=== PATIENT | male | born 2000 | race Hispanic/Latino ===

== ENCOUNTER 2020-07-17 01:12 | Emergency (ER) | payer SELFPAY ==
[~2020-07-17] VITALS: Ht 182.9 cm; Wt 129.3 kg
--- OUTSIDE RECORDS SUMMARY | 2020-07-17 01:50 | XMS REPORT | Continuity of Care Document ---
Author Author [facility] t Organization [facility] Address [address] [place] [address] Phone Unavailable Care Team Providers Care Manager Professional Development Name Role Phone Asked, Pcp No PCP Unavailable Pcp, Does Not Have A Patient Attphys +[id number]- [id number] Problems Condition Name Condition Details Condition Category Status Onset Date Resolution Date Last Treatment Date Treating Clinician Comments Source Status post arthroscopic surgery of right knee Status post arthroscopic surgery of right knee Disease Active 2017-10-27 00:00:00 Matteo Rollins Rupture of anterior cruciate ligament of right knee Ru pture of anterior cruciate ligament of right knee Disease Active 2017-06-28 00:00:00 Matteo Rollins Complex tear of lateral meniscus of right knee as curr ent injury Complex tear of lateral meniscus of right knee as current injury Disease Active 2017-06-28 00:00:[address] Effusion of right knee Effusion of right knee Disease Active 2017-06-28 00:00:[address] Knee stiffness Knee stiffness Disease Active 2017-06-28 00:00:00 Matteo Rollins Sprain of lateral collateral ligament of right knee Sp rain of lateral collateral ligament of right knee Disease Active 2017-06-28 00:00:00 Matteo Rollins Allergies, Adverse Reactions, Alerts This patient has no known allergies or adverse reactions. Family History Family Member Diagnosis Comments Start Date Stop Date Source Natural father No Known Problems Jourdan Rollins Natural mother No Known Problems Jourdan Rollins Paternal grandfather Heart disease H martin Rollins Social History Social Habit Start Date Stop Date Quantity Comments Source Sex Assigned At Jourdan beck Alevism Alcohol intake 2017-08-01 00:00:00 2017-08-01 00:00:00 Current non-drinker of alcohol (finding) Matteo Rollins Smoking Status Start Date Stop Date Source Never smoker Matteo soto Medications This patient has no known medications. Procedures This patient has no known procedures. Plan of Care Planned Activity Planned Date Details Comments Source Future Scheduled Test 2020-05-01 00:00:00 INFLUENZA VACCINE [code = INFLUENZA VACCINE] Matteo Rollins Encounters Start Date/Time End Date/Time Encounter Type Admission Type Att[facility] Care Department Encounter ID Source 2020-01-18 00:00:00 2020-01-18 00:00:00 Telephone P cp, Patient Does Not Have A [facility] [id number] Results This patient has no known results.
--- OUTSIDE RECORDS SUMMARY | 2020-07-17 01:50 | XMS REPORT | Clinical Summary ---
Author Author [facility] Address Unknown Phone Unavailable Care Team Providers Care Crude Tester Name Role Phone Asked, No Pcp PCP Unavailable Allergies No Known Active Allergies Medications No known medications Active Problems Problem Noted Date Status post arthroscopic surgery of right knee 10/27 Rupture of anterior cruciate ligament of right knee 06/28/2017 Complex tear of lateral meniscus of right knee as cur rent injury 06/28/2017 Effusion of right knee 06/28/2017 Knee stiffness 06/28/2017 Sprain of lateral collateral ligament of right knee 06/28/2017 Surgical History Surgery Date Site/Laterality Comments RECONSTRUCTION, ACL, 06/28/2017 Knee/Right Procedure : RIGHT KNEE ARTHROSCOPY, LATERAL ARTHROSCOPIC, USING MENISCUS REPAIR, ACL REPAIR ; Surgeon: Hamilton ACHILLES TENDON GRAFT Jakub Gonsales MD; Location: [facility] OR; Service: Orthopedics; Laterality: Righ t; Medical devices from this surgery are i n the Implants section. Family History Medical History Relation Name Comments No Known Problems Father No Known Problems Mother Heart disease Paternal Grandfather Relation Name Status Comments Father Mother Paternal Grandfather Social History Date Tobacco Use Types Packs/Day Years Used Never Smoker Drinks/Week oz/Week Comments Alcohol Use No Sex Assigned at Date Recorded Not on file Last Filed Vital Signs Not on file Plan of Treatment Health Maintenance Due Date Last Done Comments INFLUENZA VACCINE 05/01/2020 Implants Device Identifier Shelf Expiration Date Model / Serial / L ot Implanted Type Area Manufactur er 02/28/2019 [place] [id number] / / [id number] [employer] Swivelock Biocmp[employer] C Orthopedic Right: Knee ARTHREX Vntd 4.75x19.1mm - [id number] [employer] Implanted: Qty: 1 on 06/28/2017 by Implants Hamilton Gonsales MD at [facility] Results Not on fileafter 07/17/2019 Insurance Type Payer Benefit Subscriber ID Effective Phone Address Plan / Dates Group HMO STUDENT ASSURANCE STUDENT xxx xxxxxxx 2017- SERVICES/[place] [employer] xxxx [id number] Present SERVICES/C [place] [employer] Medicaid MEDICAID MEDICAID [id number] 2017-P [place] Advance Directives For more information, please contact: [phone] Patient Manufacturing Weaver Explanation Type Date Recorded Advance Directives, 06/24/2017 8:49 AM Living Will and Medical Power of Technology Intern
--- NOTE | 2020-07-17 01:51 | Emergency Department Note ---
History of Present Illnes History of Present Illness Chief Complaint: left nasal Laceration s/p trip and fall History of Present Illness This is a 20 year old male. was doing well prior to this. then got drunk then tripped and fell hip head. no loc Historian: Patient, Family Member Arrival Mode: Car History limited by: condition of the patient (normal) Surface Water Technician Required: No Onset (how long ago): minute(s) (30) Location: rgt forehead Quality: sharp Radiation: Reports non-radiation Severity: moderate Onset quality: sudden Duration (how long): hour(s) (0.5) Timing of current episode: constant Progression: unchanged Chronicity: new Context: Reports trauma/injury; Denies recent illness, Denies recent surgery, Denies recent immobilization, Denies recent travel, Denies new medications, Denies hx of DVT/PE, Denies non- compliance w/ medications Relieving factors: none Exacerbating factors: none Associated symptoms: Reports denies other symptoms Treatments prior to arrival: none Past Medical/Family History Physician Review I have reviewed the patient's past medical and family history. Any updates have been documented here. Past Medical History Recent Fever: No Clinical Suspicion of Infectio: No New/Unexplained Change in Ment: No Past Medical History: None Past Surgical History: None Social History Smoking Cessation: Current every day smoker Counseling Performed: Yes Alcohol Use: Occasional Any Illegal Drug Use: No Physically hurt or threatened: No Other Any Pre-Existing Lines (PICC,: No Review of Systems Review of Systems Constitutional: Reports no symptoms EENTM: Reports no symptoms Cardiovascular: Reports no symptoms Respiratory: Reports no symptoms Gastrointestinal: Reports no symptoms Genitourinary: Reports no symptoms Musculoskeletal: Reports no symptoms Integumentary: Reports as per HPI Neurological: Reports as per HPI Psychological: Reports no symptoms Endocrine: Reports no symptoms Hematological/Lymphatic: Reports no symptoms Review of other systems: All other systems negative Physical Exam Related Data Allergies: Coded Allergies: No Known Allergies (Unverified , 07/17/20) Triage Vital Signs Vital Signs Date Time Temp Pulse Resp B/P (MAP) Pulse Ox O2 Delivery O2 Flow Rate FiO2 07/17/20 01:20 98.2 97 18 148/88 100 Room Air Vital signs reviewed: Yes Physical Exam CONSTITUTIONAL Constitutional: Present well-developed, Present well-nourished, Present other (+smell of alcohol) HENT HENT: Present normocephalic, Present oropharynx clear/moist, Present nose nor mal, Present other (rgt forehead swelling/tender) HENT L/R: Present left ext ear normal, Present right ext ear normal EYES Eyes: Reports PERRL, Reports conjunctivae normal NECK Neck: Present ROM normal PULMONARY Pulmonary: Present effort normal, Present breath sounds normal CARDIOVASCULAR Cardiovascular: Present regular rhythm, Present heart sounds normal, Present capillary refill normal, Present normal rate GASTROINTESTINAL Abdominal: Present soft, Present nontender, Present bowel sounds normal GENITOURINARY Genitourinary: Present exam deferred SKIN Skin: Present warm, Present other (2 cm laceration left nose) MUSCULOSKELETAL Musculoskeletal: Present ROM normal NEUROLOGICAL Neurological: Present alert, Present oriented x 3, Present no gross motor or sensory deficits PSYCHOLOGICAL Psychological: Present mood/affect normal, Present judgement normal Procedures Laceration Laceration: Laceration 1 Site: face (left nose) Side: left Size (cm): 2 Description: linear Depth: simple, single layer Pre-repair: wound exposed, irrigated extensively Skin layer closed with: other (dermabond) Additional comments no complications Assessment & Plan Medical Decision Making MDM see below Assessment & Plan Final Impression: (1) Laceration of nose (2) Alcohol intoxication (3) Hematoma Last Vital Signs Date Time Temp Pulse Resp B/P (MAP) Pulse Ox O2 Delivery O2 Flow Rate FiO2 07/17/20 01:20 98.2 97 18 148/88 100 Room Air WILLIAMSPOPRICA MCCLELLAND Jul 17, 2020 01:51
--- NOTE | 2020-07-17 02:23 | Diagnostic Imaging Report ---
EXAMINATION: Head CT without contrast. HISTORY:Fall. COMPARISON:None. TECHNIQUE: Multidetector axial images were obtained from the foramen magnum to the vertex without contrast. The images were reconstructed using brain and bone algorithms. Thin section brain images were reformatted into coronal and sagittal planes. Dose modulation, iterative reconstruction, and/or weight based adjustment of the mA/kV was utilized to reduce the radiation dose to as low as reasonably achievable. Intravenous contrast: None IMAGE QUALITY: Suboptimal evaluation due to motion artifacts. FINDINGS: Skull/scalp: Mild right frontal scalp soft tissue edema/hematoma. No soft tissue emphysema or radiopaque foreign body. No acute depressed or displaced calvarial fracture. No lytic or blastic. lesions. No surgical changes. Parenchyma: Suboptimal evaluation due to motion artifact, despite the limitation no gross acute hemorrhage, large mass or acute major vascular territorial infarct.. Arteries: No density suggestive of thrombosis. Dural sinuses: No abnormal density suggestive of thrombosis. Ventricles: No hydrocephalus or displacement. Extra-axial spaces: No abnormal density. Brain volume: Normal for age. Craniocervical junction: No mass, Chiari malformation, or basilar invagination. Sella: No mass. Paranasal/mastoid sinuses: Imaged portions unremarkable. IMPRESSION: 1. Mild right frontal scalp soft tissue edema/hematoma. No acute calvarial fracture. 2. Suboptimal evaluation due to motion artifact, despite the limitation no gross acute intracranial abnormality. Signed by: Dr. Sintia Bull M.D. on 07/17/2020 2:19 AM
--- NOTE | 2020-07-17 02:26 | Diagnostic Imaging Report ---
History: Fall. Comparison studies: None Technique: Axial images were obtained through the cervical region.. Coronal and sagittal images reconstructed from the axial data. Dose modulation, iterative reconstruction, and/or weight based adjustment of the mA/kV was utilized to reduce the radiation dose to as low as reasonably achievable. Intravenous contrast: None Findings: Fractures: None. Soft tissue injuries: None. Atlantoaxial articulation: Intact. Alignment: Loss of normal cervical lordosis is either positional or due to muscle spasm. No subluxation. No scoliosis. Cervicomedullary junction: No abnormalities. The foramen magnum is patent. Soft tissues: No abnormalities. Vertebrae: No fractures, infection or neoplasm. Degenerative changes: None. IMPRESSION: 1. No acute cervical spine fracture or dislocation. Loss of normal cervical lordosis is either positional or due to muscle spasm. 2. Ligament, spinal cord and or vascular abnormalities cannot be excluded on the basis of this examination. Signed by: Dr. Sintia Bull M.D. on 07/17/2020 2:23 AM
== END 2020-07-17 02:46 | disposition home or self-care (01) ==
LOC: FSED 01:30
DX: S01.21XA Laceration without foreign body of nose, initial encounter (principal); F10.129 Alcohol abuse with intoxication, unspecified; W01.0XXA Fall on same level from slipping, tripping and stumbling without subsequent striking against object, initial encounter; Y93.01 Activity, walking, marching and hiking
CPT/HCPCS: 70450; 72125; 99283